=== PATIENT | female | born 1940 | race African-American/Black ===

== ENCOUNTER → 2016-06-21 | Outpatient (CLI) | payer BC ==
[~2016-06-21] MED LIST: ASPCH81X PO; ATOR-22 PO; GLC/500 PO; GLIM2TAB2 PO
[2016-06-21 09:45] LABS: BASO % 0.2 %; BASO ABS # 0.02 K/uL (0-0.2); COMPLETE YES; EOS % 2.5 %; HEMATOCRIT 40.9 % (37-47); IG% 0.2 %; LYMPH % 47.6 %; LYMPH ABS # 4.38 K/uL (1.2-3.4); MEAN CELL VOLUME 90.5 fL (80-100); MEAN CORPUSCULAR HGB CONC 34.2 g/dl (32-36); MONO % 8.6 %; NEUT % 40.9 %; PLATELET COUNT 239 K/uL (130-400); RED BLOOD COUNT 4.52 M/uL (4.2-5.4)
[2016-06-21 10:17] LABS: ALT/SGPT 17 U/L (12-78); AST/SGOT 13 U/L (15-37); BLOOD UREA NITROGEN 15 mg/dl (7-18); BUN/CREATININE RATIO 19.7 (10-20); CALCIUM 8.9 mg/dl (8.5-10.1); CARBON DIOXIDE 28 mmol/L (21-32); CHLORIDE 108 mmol/L (98-107); CHOLESTEROL 113 mg/dl (0-200); CREATININE 0.77 mg/dl (0.60-1.20); GLUCOSE 102 mg/dl (70-99); SODIUM 143 mmol/L (136-145); TRIGLYCERIDES 75 mg/dl (0-150); VERY LOW DENSITY LIPOPROT CALC 15 mg/dl
[2016-06-21 10:28] LABS: CHOLESTEROL/HDL RATIO 2.5; HDL CHOLESTEROL 45 mg/dl; LDL CHOLESTEROL CALCULATED 53 mg/dl
[2016-06-21 10:31] LABS: ESTIMATED AVERAGE GLUCOSE 137 mg/dl; HA1C FLAG Normal (Normal)
== END | disposition home or self-care (01) ==
LOC: C.LAB1850 07:01
PROVIDERS: ATTEND Physician Assistant
DX: E78.00 Pure hypercholesterolemia, unspecified (principal); E11.9 Type 2 diabetes mellitus without complications

== ENCOUNTER → 2016-10-10 | Outpatient (CLI) | payer BC ==
[2016-10-10 12:34] LABS: ESTIMATED AVERAGE GLUCOSE 131 mg/dl; HA1C FLAG Normal (Normal)
== END | disposition home or self-care (01) ==
LOC: C.LAB1850 10:46
PROVIDERS: ATTEND Physician Assistant
DX: E11.9 Type 2 diabetes mellitus without complications (principal)

== ENCOUNTER → 2017-01-23 | Outpatient (CLI) | payer BC ==
--- NOTE | 2017-01-23 15:03 | MAMMOGRAPHY REPORT ---
BILATERAL DIGITAL SCREENING MAMMOGRAM WITH CAD: 01/23/2017 CLINICAL HISTORY: Routine screening. Patient has no complaints. TECHNIQUE: Bilateral CC and MLO views were obtained. Current study was also evaluated with a Compute r Aided Detection (CAD) system. COMPARISON: Comparison is made to exams dated: 01/21/2016 mammogram, 01/19/2015 mammogram, 01/16/2014 mammogram - [facility], and 10/23/2007. BREAST COMPOSITION: The tissue of both breasts is almost entirely fatty. FINDINGS: There are mild vascular calcifications in both breasts. Stable intramammary lymph node in the right upper outer quadrant. No new suspicious mass, architectural distortion or cluster of micro calcifications is seen. IMPRESSION: ACR BI-RADS CATEGORY 2: BENIGN There is no mammographic evidence of malignancy. A 1 year screening mammogram is recommended. The pa tient will receive written notification of the results. Approximately 10% of breast cancers are not detected with mammography. A negative mammographic report should not delay biopsy if a clinically suggestive mass is present. Kimi Chaudhari M.D. ay/:01/23/2017 13:59:[address]: Dotty Ambrosio RT(R)(M)(BD), [facility] letter sent: Normal 1/2 BI-RADS Code: ACR BI-RADS Category 2: Benign
== END | disposition home or self-care (01) ==
LOC: C.MAMM 08:44
PROVIDERS: ATTEND Physician Assistant
DX: Z12.31 Encounter for screening mammogram for malignant neoplasm of breast (principal)

== ENCOUNTER → 2017-02-10 | Outpatient (CLI) | payer BC ==
[2017-02-10 09:32] LABS: BASO % 0.1 %; BASO ABS # 0.01 K/uL (0-0.2); COMPLETE YES; HEMATOCRIT 42.7 % (37-47); IG% 0.2 %; LYMPH ABS # 4.47 K/uL (1.2-3.4); MEAN CELL VOLUME 94.7 fL (80-100); MEAN CORPUSCULAR HEMOGLOBIN 31.9 pg (25-34); MEAN CORPUSCULAR HGB CONC 33.7 g/dl (32-36); MEAN PLATELET VOLUME 10.1 fL (7.4-10.4); MONO % 6.8 %; NEUT % 36.9 %; PLATELET COUNT 246 K/uL (130-400); RED BLOOD COUNT 4.51 M/uL (4.2-5.4); WHITE BLOOD COUNT 10.17 K/uL (4.8-10.8)
[2017-02-10 09:53] LABS: ALT/SGPT 20 U/L (12-78); AST/SGOT 19 U/L (15-37); BLOOD UREA NITROGEN 12 mg/dl (7-18); BUN/CREATININE RATIO 14.4 (10-20); CALCIUM 8.8 mg/dl (8.5-10.1); CARBON DIOXIDE 28 mmol/L (21-32); CHLORIDE 105 mmol/L (98-107); CREATININE 0.83 mg/dl (0.60-1.20); GLUCOSE 88 mg/dl (70-99); POTASSIUM 3.8 mmol/L (3.5-5.1); SODIUM 139 mmol/L (136-145)
[2017-02-10 09:55] LABS: ESTIMATED AVERAGE GLUCOSE 131 mg/dl; HA1C FLAG Normal (Normal)
[2017-02-10 10:05] LABS: CHOLESTEROL 100 mg/dl (0-200); CHOLESTEROL/HDL RATIO 2.4; HDL CHOLESTEROL 42 mg/dl; LDL CHOLESTEROL CALCULATED 39 mg/dl; TRIGLYCERIDES 96 mg/dl (0-150); VERY LOW DENSITY LIPOPROT CALC 19 mg/dl
--- NOTE | 2017-02-17 07:05 | CODING QUERY NO DIAGNOSIS ---
: 1940 TREATMENT RENDERED WITHOUT A DIAGNOSIS To promote full compliance with coding requirements relating to patient care, physician participation is requested in all cases of surgical coder uncertainty. Please assist us with providing a diagnosis/symptom for the test(s) below: A diagnosis/symptom was not documented on your Order. A valid diagnosis/symptom is required to bill all insurances. Please remember that we are unable to code a diagnosis of rule out, probable, possible, questionable, or suspected. Tests that require a diagnosis: DOS: 02/10/17 * ALT/SGPT DIAGNOSIS: * AST/SGOT DIAGNOSIS: * CREATINE PHOSPHOKINASE DIAGNOSIS: * LIPID PROFILE FASTING DIAGNOSIS: * PARTIAL RENAL PROFILE DIAGNOSIS: * THYROID STIMULATING HORMONE DIAGNOSIS: * CBC WITH AUTO DIFFERENTIAL DIAGNOSIS: * HEMOGLOBIN A1C DIAGNOSIS: Provider Signature: Date: Thank you Carey Prescott [email or web address] Information Management Once completed, please kindly fax back to [phone] For questions please call [phone]
== END | disposition home or self-care (01) ==
LOC: C.LAB1850 07:16
PROVIDERS: ATTEND Physician Assistant
DX: E78.00 Pure hypercholesterolemia, unspecified (principal); E11.9 Type 2 diabetes mellitus without complications

== ENCOUNTER → 2017-06-12 | Outpatient (CLI) | payer BC ==
[2017-06-12 14:56] LABS: HEMOGLOBIN A1C 6.7 % (4.5-5.6)
== END | disposition home or self-care (01) ==
LOC: C.LAB1850 13:15
PROVIDERS: ATTEND Physician Assistant
DX: E11.9 Type 2 diabetes mellitus without complications (principal)

== ENCOUNTER → 2017-10-12 | Outpatient (CLI) | payer BC ==
[2017-10-12 09:27] LABS: BASO % 0.2 %; BASO ABS # 0.02 K/uL (0-0.2); EOS % 7.3 %; EOS ABS # 0.62 K/uL (0-0.5); HEMOGLOBIN 13.9 g/dL (12.0-16.0); IG# 0.02 K/uL (0.00-0.02); LYMPH % 42.9 %; LYMPH ABS # 3.63 K/uL (1.2-3.4); MEAN CELL VOLUME 93.3 fL (80-100); MEAN CORPUSCULAR HEMOGLOBIN 30.2 pg (25-34); MEAN CORPUSCULAR HGB CONC 32.3 g/dl (32-36); MEAN PLATELET VOLUME 10.7 fL (7.4-10.4); MONO ABS # 0.68 K/uL (0.11-0.59); NEUT % 41.4 %; NEUT ABS # 3.49 K/uL (1.4-6.5); PLATELET COUNT 213 K/uL (130-400); RED CELL DISTRIBUTION WIDTH SD 47.5 fL (36.4-46.3); WHITE BLOOD COUNT 8.46 K/uL (4.8-10.8)
[2017-10-12 09:37] LABS: HEMOGLOBIN A1C 6.6 % (4.5-5.6)
[2017-10-12 09:46] LABS: ALT/SGPT 19 U/L (12-78); AST/SGOT 20 U/L (15-37); BLOOD UREA NITROGEN 15 mg/dl (7-18); CALCIUM 8.9 mg/dl (8.5-10.1); CARBON DIOXIDE 30 mmol/L (21-32); CHOLESTEROL 93 mg/dl (0-200); CREATININE 0.81 mg/dl (0.60-1.20); GLUCOSE 108 mg/dl (70-99); LDL CHOLESTEROL CALCULATED 35 mg/dl; POTASSIUM 3.9 mmol/L (3.5-5.1); SODIUM 140 mmol/L (136-145)
== END | disposition home or self-care (01) ==
LOC: C.LAB1850 07:03
PROVIDERS: ATTEND Physician Assistant
DX: E78.00 Pure hypercholesterolemia, unspecified (principal); E11.9 Type 2 diabetes mellitus without complications

== ENCOUNTER 2018-10-08 09:26 | Observation (INO) ==
[2018-10-08] MEDS ORDERED: SODIUM CHLORIDE 0.9% 500 ML IV SCH (10:00)
[2018-10-08 10:02] LABS: Basophils # (auto) 0.01 K/uL (0-0.2); Basophils % (auto) 0.1 %; Eosinophils # (auto) 0.14 K/uL (0-0.5); Eosinophils % (auto) 1.6 %; Hematocrit (blood only) 41.1 % (37-47); Hemoglobin 14.1 g/dL (12.0-16.0); Immature Granulocytes # (auto) 0.01 K/uL (0.00-0.02); Immature Granulocytes % (auto) 0.1 %; Lymphocytes % (auto) 48.1 %; Mean Corpuscular Hgb Conc 34.3 g/dL (32-36); Mean Corpuscular Volume 94.7 fL (80-100); Mean Platelet Volume 9.6 fL (7.4-10.4); Monocytes # (auto) 0.72 K/uL (0.11-0.59); Monocytes % (auto) 8.4 %; Neutrophils # (auto) 3.55 K/uL (1.4-6.5); Neutrophils % (auto) 41.7 %; Platelet Count 199 K/uL (130-400); RDW Coefficient of Variation 13.2 % (11.5-14.5); RDW Standard Deviation 46.3 fL (36.4-46.3); Red Blood Count 4.34 M/uL (4.2-5.4); White Blood Count 8.53 K/uL (4.8-10.8)
[2018-10-08 10:13] LABS: Alanine Aminotransferase 15 U/L (12-78); Albumin Level 3.9 gm/dl (3.4-5.0); Aspartate Aminotransferase 12 U/L (15-37); BUN Creatinine Ratio 16.5 (10-20); Blood Urea Nitrogen 12 mg/dl (7-18); Calcium 9.2 mg/dl (8.5-10.1); Carbon Dioxide 28 mmol/L (21-32); Chloride 109 mmol/L (98-107); Est GFR (African American) 93.4; Est GFR (Non-African American) 80.6; Glucose 91 mg/dl (70-99); Potassium 3.7 mmol/L (3.5-5.1); Sodium 142 mmol/L (136-145)
--- NOTE | 2018-10-08 10:13 | CT Scan Report ---
CT head/brain wo con CT DOSE: 537.48 mGy.cm HISTORY: Mental status change CONNER TECHNIQUE: Multiaxial CT images of the head were performed without the use of intravenous contrast. A dose lowering technique was utilized adhering to the principles of ALARA. Comparison: None. Findings: The paranasal sinuses and mastoid air cells are clear. The calvarium and skull base are int act. The ventricles and sulci are within normal limits. There is no mass, hematoma, midline shift, or acute infarct. Impression: No acute intracranial abnormality. The above report was generated using voice recognition software. It may contain grammatical, syntax or spelling errors. Electronically signed by: James Bernal M.D. 10/08/2018 10:12 AM
[2018-10-08 10:18] LABS: Albumin Globulin Ratio 1.1 (0.9-2); Alkaline Phosphatase 82 U/L (45-117); Bilirubin,Total 1.3 mg/dl (0.2-1); Globulin 3.5 gm/dl (2.5-4.0); Total Protein 7.4 gm/dl (6.4-8.2); Troponin I < 0.015 ng/ml (0-0.045)
--- NOTE | 2018-10-08 10:38 | XRay Report ---
XR chest 1V portable CLINICAL HISTORY: CONNER dyspnea COMPARISON STUDY: No previous studies for comparison. FINDINGS: The bones soft tissues and hemidiaphragms are normal. The cardiomediastinal silhouette is n ormal. The lungs are clear. The pulmonary vasculature is normal. IMPRESSION: Negative chest. The above report was generated using voice recognition software. It may contain grammatical, syntax or spelling errors. Electronically signed by: James Bernal M.D. 10/08/2018 10:37 AM
--- NOTE | 2018-10-08 11:38 | History & Physical Report ---
Date of Service October 08, 2018 Assessment & Plan (1) Paresthesias: Observation with telemetry. Consult neurology. Obtain brain MRI/MRA. Obtain cardiac echo. Lyme screen and ESR levels pending. Request OT/PT/speech evaluation. Continue aspirin and statin therapy Present on Admission?: Yes (2) Type 2 diabetes mellitus: ADA diet. Sliding scale insulin coverage. Metformin is on hold Present on Admission?: Yes (3) Hyperlipidemia: Continue statin therapy Present on Admission?: Yes (4) DVT prophylaxis: Lovenox subcu History of Present Illness Chief Complaint: Right scalp and right arm paresthesia Primary Care Provider: Valentin Hendrix MD 72-year-old female of [place] descent with a history of hyperlipidemia and type 2 diabetes. She awoke this morning with a burning sensation along the right scalp area right neck and right upper extremity. She had no apparent facial droop or difficulty with dexterity or weakness. This was confirmed by her . Her symptoms persisted and she came to the ED because she was afraid. Chest x-ray is negative. Head CT scan negative. EKG reveals sinus bradycardia with heart rate 54. At the time of my examination she states the right arm/hand paresthesia has resolved and she still has mild residual burning paresthesia in the right scalp area. No focal motor deficits. She is placed in observation status for further evaluation and neurological consultation. Allergies Allergy/AdvReac Type Severity Reaction Status Date / Time No Known Drug Allergies Allergy Unknown . Verified 10/08/18 10:34 Home Medications Home Medications Medication Instructions Recorded Confirmed Type aspirin 81 mg PO QAM 10/08/18 10/08/18 History atorvastatin 20 mg PO DAILY 10/08/18 10/08/18 History gabapentin 100 mg PO HS 10/08/18 10/08/18 History glimepiride 2 mg PO DAILY 10/08/18 10/08/18 History metformin 500 mg PO BID 10/08/18 10/08/18 History Past Med/Surg History Medical History No pertinent past medical history No pertinent family history Surgical History No pertinent past surgical history Family History Other No pertinent family history Social History Communication Ability: Effective Visual Impairment: No Limitations Hearing Ability: Normal Feels Safe at Home: Yes Smoking Status: Never smoker Review of Systems Review of Systems: Constitutional-no fever or chills ENT-no blurred vision, no double vision, no epistaxis, no sore throat Respiratory-no cough, no wheezing, no shortness of breath Cardiac-no palpitations, no chest pain, no syncope GI-no nausea, vomiting, diarrhea, melena, hematochezia -no urinary retention, no urinary incontinence, no dysuria, no hematuria Musculoskeletal-no joint pain, no muscle tenderness Skin-no bruising, no rashes, no pruritus Neuro-burning paresthesia right scalp area and right upper extremity. No localized weakness Psych-no depression, no anxiety Physical Exam Physical Exam: General-alert and oriented x3, no fevers, no chills HEENT-head atraumatic and normocephalic, TMs intact bilaterally, pupils equal and reactive to light, extraocular muscles intact Neck-no lymphadenopathy or thyromegaly, trachea midline Chest-clear to auscultation percussion. No rales wheezing or rhonchi Cardiac-regular rate and rhythm, normal S1 and S2, no murmurs Abdomen-normal bowel sounds, nontender, no hepatosplenomegaly Extremities-no cyanosis, clubbing, or edema Neuro-cranial nerves II through XII intact, motor and sensory function within normal limits, strength symmetrical , no focal deficits. Normal bilateral avxozj-su-vzjw and vfob-dh-[id number] Psych-normal affect, normal mood Results & Data Vital Signs (Past 12 Hours) Vital Signs Temp Pulse Pulse Resp BP BP Pulse Ox 10/08/18 10:58 55 L 16 159/54 H 98 10/08/18 09:52 99 10/08/18 09:27 36.9 C 66 20 184/73 H 100 Laboratory Results 10/08/18 09:49 10/08/18 09:49 PG Care Time/CCT Total # of Minutes Spent Total Time Spent with Patient: Total time spent is greater than 50% in coordination of care (as documented) at patient's floor/unit and/or counseling patient:
[2018-10-08 12:19] LABS: Lyme Ab IgG w/WB Rflx Negative (Negative); Lyme Ab IgM w/WB Rflx Negative (Negative)
[2018-10-08] MEDS ORDERED: ONDANSETRON INJ 2 MG/ML 2 ML VIAL IV PRN (16:06)
[2018-10-08] MEDS ORDERED: PHARMACIST DISCHARGE MED REC CONSULT PRN (16:06)
[2018-10-08] MEDS ORDERED: ACETAMINOPHEN 325 MG TAB PO PRN (16:06)
[2018-10-08] MEDS ORDERED: ALUMINUM/MAGNESIUM SUSP 30 ML UDC PO PRN (16:06)
[2018-10-08] MEDS ORDERED: GLUCAGON FOR INJ 1 MG VIAL IM PRN (16:15)
[2018-10-08] MEDS ORDERED: DEXTROSE 50% 50 ML SYRINGE IV PRN (16:15)
[2018-10-08] MEDS ORDERED: GLUCOSE 10 TABS/TUBE PO PRN (16:15)
[2018-10-08] MEDS ORDERED: CARBOHYDRATES FOR HYPOGLYCEMIA PO PRN (16:15)
[2018-10-08] MEDS ORDERED: GLUCOSE 40% GEL 15 GM TUBE PO PRN (16:15)
[2018-10-08 16:41] LABS: Partial Thromboplastin Time 26.5 Seconds (21.0-31.0); Prothrombin Time 10.3 Seconds (9.0-12.0)
--- NOTE | 2018-10-08 16:41 | Emergency Department Note ---
Entered by Perlita Madden acting as a scribe for History of Present Illness General Chief complaint: Neuro Symptoms/Deficit Stated complaint: BURNING FEELINGS RT HAND AND RT SIDE HEAD,EAR Source: patient Mode of arrival: ambulatory Limitations: no limitations History of Present Illness Onset (ago): hour(s) (0100) Location: right (face, hand) Radiation: non-radiation Pain Consistency: + constant Maximum Pain Intensity: 8 Quality: + burning Exacerbated By: + none Associated symptoms: + other (The patient complains of pain in her right arm and right face.The patient denies numbness, abdominal pain, and diarrhea. ); no chest pain, no cough, no nausea/vomiting, no shortness of breath and no weakness The patient is a 77 year old female with no known past medical history who presents to the ED with complaints of constant neurological symptoms that onset at 0100. The patient presents with her . She states that she woke up with a burning pain like fire in her right hand. She reports that the pain is also on the right side of her face and ear but does not go into her neck, back of head, or shoulders. The patient denies weakness, numbness, chest pain, shortness of breath, abdominal pain, nausea, vomiting, diarrhea, and cough. She denies any exacerbatory factors. Patient has no other complaints at this time. Home Medications Home Medications Medication Instructions Recorded Confirmed Type aspirin 81 mg PO QAM 10/08/18 10/08/18 History atorvastatin 20 mg PO DAILY 10/08/18 10/08/18 History gabapentin 100 mg PO HS 10/08/18 10/08/18 History glimepiride 2 mg PO DAILY 10/08/18 10/08/18 History metformin 500 mg PO BID 10/08/18 10/08/18 History Allergies Allergy/AdvReac Type Severity Reaction Status Date / Time No Known Drug Allergies Allergy Unknown . Verified 10/08/18 10:34 Past Med/Surg History Medical History Hyperlipidemia (Chronic) Type 2 diabetes mellitus (Chronic) No pertinent past medical history No pertinent family history Surgical History No pertinent past surgical history Family History Other No pertinent family history Social History Communication Ability: Effective Visual Impairment: No Limitations Hearing Ability: Normal Feels Safe at Home: Yes Smoking Status: Never smoker Review of Systems See HPI for pertinent positives & negatives. and A total of 10 systems reviewed and were otherwise negative Physical Exam Vital Signs Vital Signs - 24 hr 10/08/18 09:27 10/08/18 09:44 10/08/18 09:49 Temperature 36.9 C Temperature Source Oral Sepsis Recent Fever Within 48 Hours No Sepsis Action Taken by Nursing No Action Required Pulse Rate - Lying Pulse Rate - Sitting Pulse Rate - Standing Pulse Rate 66 67 58 L Pulse Rate [Left Finger] Pulse Rate from SpO2 Sensor 70 59 L Respiratory Rate 20 17 13 Blood Pressure - Lying Blood Pressure - Sitting Blood Pressure- Standing Blood Pressure 184/73 H 168/66 H Blood Pressure [Left Arm] Blood Pressure Mean 110 100 Blood Pressure Mean [Left Arm] Pulse Oximetry 100 99 99 Oxygen Delivery Method Room Air Room Air Room Air 10/08/18 09:50 10/08/18 09:52 10/08/18 09:59 Temperature Temperature Source Sepsis Recent Fever Within 48 Hours Sepsis Action Taken by Nursing Pulse Rate - Lying 61 Pulse Rate - Sitting 63 Pulse Rate - Standing 61 Pulse Rate 64 Pulse Rate [Left Finger] Pulse Rate from SpO2 Sensor 66 60 Respiratory Rate 19 Blood Pressure - Lying 142/61 H Blood Pressure - Sitting 164/71 H Blood Pressure- Standing 168/65 H Blood Pressure 142/61 H Blood Pressure [Left Arm] Blood Pressure Mean 88 Blood Pressure Mean [Left Arm] Pulse Oximetry 99 99 98 Oxygen Delivery Method Room Air Room Air Room Air 10/08/18 10:00 10/08/18 10:01 10/08/18 10:11 Temperature Temperature Source Sepsis Recent Fever Within 48 Hours Sepsis Action Taken by Nursing Pulse Rate - Lying Pulse Rate - Sitting Pulse Rate - Standing Pulse Rate 57 L Pulse Rate [Left Finger] Pulse Rate from SpO2 Sensor 64 56 L Respiratory Rate 19 Blood Pressure - Lying Blood Pressure - Sitting Blood Pressure- Standing Blood Pressure 168/65 H 174/71 H Blood Pressure [Left Arm] Blood Pressure Mean 99 105 Blood Pressure Mean [Left Arm] Pulse Oximetry 100 98 Oxygen Delivery Method Room Air Room Air Room Air 10/08/18 10:20 10/08/18 10:30 10/08/18 10:31 Temperature Temperature Source Sepsis Recent Fever Within 48 Hours Sepsis Action Taken by Nursing Pulse Rate - Lying Pulse Rate - Sitting Pulse Rate - Standing Pulse Rate 55 L 65 55 L Pulse Rate [Left Finger] Pulse Rate from SpO2 Sensor 55 L 66 55 L Respiratory Rate 17 20 21 Blood Pressure - Lying Blood Pressure - Sitting Blood Pressure- Standing Blood Pressure 159/54 H Blood Pressure [Left Arm] Blood Pressure Mean 89 Blood Pressure Mean [Left Arm] Pulse Oximetry 98 97 99 Oxygen Delivery Method Room Air Room Air Room Air 10/08/18 10:38 10/08/18 10:40 10/08/18 10:50 Temperature Temperature Source Sepsis Recent Fever Within 48 Hours Sepsis Action Taken by Nursing Pulse Rate - Lying Pulse Rate - Sitting Pulse Rate - Standing Pulse Rate 52 L 53 L 52 L Pulse Rate [Left Finger] Pulse Rate from SpO2 Sensor 52 L 55 L 54 L Respiratory Rate 18 13 22 Blood Pressure - Lying Blood Pressure - Sitting Blood Pressure- Standing Blood Pressure 159/54 H Blood Pressure [Left Arm] Blood Pressure Mean 89 Blood Pressure Mean [Left Arm] Pulse Oximetry 98 99 98 Oxygen Delivery Method Room Air Room Air Room Air 10/08/18 10:58 10/08/18 11:00 10/08/18 11:10 Temperature Temperature Source Sepsis Recent Fever Within 48 Hours Sepsis Action Taken by Nursing Pulse Rate - Lying Pulse Rate - Sitting Pulse Rate - Standing Pulse Rate 52 L 54 L Pulse Rate [Left Finger] 55 L Pulse Rate from SpO2 Sensor 51 L 55 L Respiratory Rate 16 16 21 Blood Pressure - Lying Blood Pressure - Sitting Blood Pressure- Standing Blood Pressure 150/64 H Blood Pressure [Left Arm] 159/54 H Blood Pressure Mean 92 Blood Pressure Mean [Left Arm] 89 Pulse Oximetry 98 98 99 Oxygen Delivery Method Room Air Room Air Room Air 10/08/18 11:20 10/08/18 11:30 10/08/18 11:34 Temperature Temperature Source Sepsis Recent Fever Within 48 Hours Sepsis Action Taken by Nursing Pulse Rate - Lying Pulse Rate - Sitting Pulse Rate - Standing Pulse Rate 55 L 57 L Pulse Rate [Left Finger] 56 L Pulse Rate from SpO2 Sensor 54 L 57 L Respiratory Rate 23 17 18 Blood Pressure - Lying Blood Pressure - Sitting Blood Pressure- Standing Blood Pressure 146/64 H Blood Pressure [Left Arm] 146/64 H Blood Pressure Mean 91 Blood Pressure Mean [Left Arm] 91 Pulse Oximetry 98 98 98 Oxygen Delivery Method Room Air Room Air Room Air GENERAL: Sitting up in bed, no acute distress, talking in full sentences with [place] accent. EYE EXAM: Normal conjunctiva. OROPHARYNX: no exudate, no erythema, lips, buccal mucosa, and tongue normal and mucous membranes are moist NECK: supple, no nuchal rigidity, no adenopathy, non-tender LUNGS: Clear to auscultation. Normal chest wall mechanics HEART: no murmurs, S1 normal and S2 normal ABDOMEN: abdomen soft, non-tender, normo-active bowel sounds, no masses, no rebound or guarding. BACK: Back is symmetrical on inspection and there is no deformity, no midline tenderness, no CVA tenderness. SKIN: no rashes and no bruising UPPER EXTREMITIES: upper extremities are grossly normal. LOWER EXTREMITIES: No pitting edema. NEURO EXAM: Normal sensorium, cranial nerves II-XII intact, normal speech, no weakness of arms, no weakness of legs. No drift. Finger to nose intact. Gross sensation intact. Course 0947: Past medical records reviewed. The patient was evaluated in room A9. A complete history and physical examination was performed. 1059: Call out to neurology. 1100: I reviewed the patient's case with Dr. Jace Elizalde Neurology. He states the bring the patient in for a stroke work up. 1101: I updated the patient on the results of her scans and the plan to bring her in. 1108: I reviewed the patient's case with Dr. Armida Frank - [facility]. He will evaluate the patient for further management. Consultations Consultation #1: 1100: I reviewed the patient's case with Dr. Jace Elizalde Neurology. He states the bring the patient in for a stroke work up. Time: 11:00 Consultation #2: 1108: I reviewed the patient's case with Dr. Armida Frank - [facility]. He will evaluate the patient for further management. Time: 11:08 Administered Medications Discontinued Medications Sodium Chloride (Nss) 500 mls @ 999 mls/hr IV .Q31M KEVIN Stop: 10/08/18 10:30 Last Infusion: 10/08/18 11:31 Dose: 0 mls/hr Documented by: [id number] Admin: 10/08/18 10:02 Dose: 999 mls/hr Documented by: [id number] Medical Decision Making Differential Diagnosis Differential diagnoses: Ischemic Stroke, hemorrhagic stroke, bells palsy, mass, neoplasm, migraine headache, seizure, subarachnoid hemorrhage, TIA, and transient global amnesia. Medical Records Attestation: I reviewed the patient's medical records. Home Medications Current Medication List: was personally reviewed by me Laboratory Data Attestation: I reviewed the patient's lab results. Result diagrams: 10/08/18 09:49 10/08/18 09:49 Lab Results 10/08/18 10/08/18 10/08/18 Range/Units 09:46 09:49 09:49 WBC 8.53 (4.8-10.8) K/uL RBC 4.34 (4.2-5.4) M/uL Hgb 14.1 (12.0-16.0) g/dL Hct 41.1 (37-47) % MCV 94.7 (80-100) fL MCH 32.5 (25-34) pg MCHC 34.3 (32-36) g/dL RDW Std Deviation 46.3 (36.4-46.3) fL RDW Coeff of Suzanne 13.2 (11.5-14.5) % Plt Count 199 (130-400) K/uL MPV 9.6 (7.4-10.4) fL Immature Gran % (Auto) 0.1 % Neut % (Auto) 41.7 % Lymph % (Auto) 48.1 % Mcleod % (Auto) 8.4 % Eos % (Auto) 1.6 % Baso % (Auto) 0.1 % Immature Gran # (Auto) 0.01 (0.00-0.02) K/uL Neut # (Auto) 3.55 (1.4-6.5) K/uL Lymph # (Auto) 4.10 H (1.2-3.4) K/uL Mcleod # (Auto) 0.72 H (0.11-0.59) K/uL Eos # (Auto) 0.14 (0-0.5) K/uL Baso # (Auto) 0.01 (0-0.2) K/uL ESR (0-21) mm/hr Sodium 142 (136-145) mmol/L Potassium 3.7 (3.5-5.1) mmol/L Chloride 109 H (98-107) mmol/L Carbon Dioxide 28 (21-32) mmol/L Anion Gap 5.0 (3-11) BUN 12 (7-18) mg/dl Creatinine 0.73 (0.6-1.2) mg/dl Est Cr Clr Drug Dosing Not Reportable Est GFR ( Amer) 93.4 Est GFR (Non-Af Amer) 80.6 BUN/Creatinine Ratio 16.5 (10-20) Glucose 91 (70-99) mg/dl Calcium 9.2 (8.5-10.1) mg/dl Total Bilirubin 1.3 H (0.2-1) mg/dl AST 12 L (15-37) U/L ALT 15 (12-78) U/L Alkaline Phosphatase 82 (45-117) U/L Troponin I < 0.015 (0-0.045) ng/ml Total Protein 7.4 (6.4-8.2) gm/dl Albumin 3.9 (3.4-5.0) gm/dl Globulin 3.5 (2.5-4.0) gm/dl Albumin/Globulin Ratio 1.1 (0.9-2) Lyme Disease IgG Ab Negative (Negative) Lyme Disease IgM Ab Negative (Negative) 10/08/18 Range/Units 09:49 WBC (4.8-10.8) K/uL RBC (4.2-5.4) M/uL Hgb (12.0-16.0) g/dL Hct (37-47) % MCV (80-100) fL MCH (25-34) pg MCHC (32-36) g/dL RDW Std Deviation (36.4-46.3) fL RDW Coeff of Suzanne (11.5-14.5) % Plt Count (130-400) K/uL MPV (7.4-10.4) fL Immature Gran % (Auto) % Neut % (Auto) % Lymph % (Auto) % Mcleod % (Auto) % Eos % (Auto) % Baso % (Auto) % Immature Gran # (Auto) (0.00-0.02) K/uL Neut # (Auto) (1.4-6.5) K/uL Lymph # (Auto) (1.2-3.4) K/uL Mcleod # (Auto) (0.11-0.59) K/uL Eos # (Auto) (0-0.5) K/uL Baso # (Auto) (0-0.2) K/uL ESR 31 H (0-21) mm/hr Sodium (136-145) mmol/L Potassium (3.5-5.1) mmol/L Chloride (98-107) mmol/L Carbon Dioxide (21-32) mmol/L Anion Gap (3-11) BUN (7-18) mg/dl Creatinine (0.6-1.2) mg/dl Est Cr Clr Drug Dosing Est GFR ( Amer) Est GFR (Non-Af Amer) BUN/Creatinine Ratio (10-20) Glucose (70-99) mg/dl Calcium (8.5-10.1) mg/dl Total Bilirubin (0.2-1) mg/dl AST (15-37) U/L ALT (12-78) U/L Alkaline Phosphatase (45-117) U/L Troponin I (0-0.045) ng/ml Total Protein (6.4-8.2) gm/dl Albumin (3.4-5.0) gm/dl Globulin (2.5-4.0) gm/dl Albumin/Globulin Ratio (0.9-2) Lyme Disease IgG Ab (Negative) Lyme Disease IgM Ab (Negative) Imaging Data Radiologist's Impression: Radiology results as stated below per my review and the radiologist's interpretation: XR chest 1V portable CLINICAL HISTORY: CONNER dyspnea COMPARISON STUDY: No previous studies for comparison. FINDINGS: The bones soft tissues and hemidiaphragms are normal. The cardiomediastinal silhouette is normal. The lungs are clear. The pulmonary vasculature is normal. IMPRESSION: Negative chest. The above report was generated using voice recognition software. It may contain grammatical, syntax or spelling errors. Electronically signed by: James Bernal M.D. 10/08/2018 10:37 AM Dictated: 10/08/18 1037 Transcribed: 10/08/[address] head/brain wo con CT DOSE: 537.48 mGy.cm HISTORY: Mental status change CONNER TECHNIQUE: Multiaxial CT images of the head were performed without the use of intravenous contrast. A dose lowering technique was utilized adhering to the principles of ALARA. Comparison: None. Findings: The paranasal sinuses and mastoid air cells are clear. The calvarium and skull base are intact. The ventricles and sulci are within normal limits. There is no mass, hematoma, midline shift, or acute infarct. Impression: No acute intracranial abnormality. The above report was generated using voice recognition software. It may contain grammatical, syntax or spelling errors. Electronically signed by: James Bernal M.D. 10/08/2018 10:12 AM Dictated: 10/08/18 1011 Transcribed: 10/08/[address] DOSE: 537.48 mGy.cm HISTORY: Mental status change CONNER TECHNIQUE: Multiaxial CT images of the head were performed without the use of intravenous contrast. A dose lowering technique was utilized adhering to the principles of ALARA. Comparison: None. Findings: The paranasal sinuses and mastoid air cells are clear. The calvarium and skull base are intact. The ventricles and sulci are within normal limits. There is no mass, hematoma, midline shift, or acute infarct. Impression: No acute intracranial abnormality. The above report was generated using voice recognition software. It may contain grammatical, syntax or spelling errors. Electronically signed by: James Bernal M.D. 10/08/2018 10:12 AM Dictated: 10/08/181 Transcribed: 10/08/181010 ECG Data Attestation: I personally reviewed and interpreted this ECG as follows: Indication: other (neuro symptoms) Rate (beats per minute): 54 Rhythm: sinus bradycardia Findings: + left axis deviation; no PVC Blood Pressure Blood Pressure Findings: Elevated blood pressure Blood Pressure Disposition: further management by hospitalist ZACH Narrative Patient is a 77-year-old female presents the ER for pain/burning in her right hand and right side of her face which starts along the hairline. No tenderness over her temporal artery. Patient denies any fevers. No weakness or numbness in her arms or legs. IV was established blood work was obtained and showed no significant leukocytosis or anemia. Sed rate was slightly elevated at 31 but not above 50. INR was unremarkable. BMP with LFTs was unremarkable. Bilirubin slightly elevated at 1.3. Troponin was negative. Lyme was negative. CT head was negative as well as chest x-ray without any focal infiltrate and EKG being unremarkable. Patient was given IV fluids. She is updated bedside. Discussed with neurology Dr. Bradshaw who recommended bringing the patient in for stroke work- up as this is most likely central in nature. Patient family were updated bedside and patient was admitted after discussion with the hospitalist. Impression & Plan Paresthesias, Elevated bilirubin Discharge Plan Visit Data *Final* Discharge Date/Time: 10/08/18 15:15 Chief Complaint: Neuro Symptoms/Deficit Stated Complaint: BURNING FEELINGS RT HAND AND RT SIDE HEAD,EAR ED Provider: Osmin Joyner Discharge Problem: Paresthesias, Elevated bilirubin Patient Disposition: Admitted As Inpatient Discharge Instructions Interventions: ED Discharge Assessment Last Done: 10/08/18 15:15 The scribe's documentation has been prepared under my direction and personally reviewed by me in its entirety. I confirm that the note above accurately reflects all work, treatment, procedures, and medical decision making performed by me.
[2018-10-08] MEDS: INSULIN ASPART 100 UNITS/ML 3 ML PEN SC SCH ×2 (17:25→21:44)
[2018-10-08] MEDS ORDERED: ENOXAPARIN INJ 40 MG/0.4 ML SYR SQ SCH (18:00)
--- NOTE | 2018-10-08 19:14 | Magnetic Resonance Report ---
MR ANGIOGRAPHY OF THE [place] NO CONTRAST CLINICAL HISTORY: Right sided paresthesia COMPARISON STUDY: None. A 3-D trvq-[id number]-rpaaat MR angiographic sequence of the [place] was performed. Both the source and projection images were reviewed. There is no evidence of major intracranial branch occlusion. There is no evidence of intracranial mike nosis. There are no lesions suspicious for aneurysm. IMPRESSION: Unremarkable MR angiography of the [place]. Electronically signed by: Yevgeniy Linares M.D. 10/08/2018 7:13 PM
[2018-10-08] MEDS ORDERED: GADOBUTROL 65ML VIAL IV PRN (19:41)
--- NOTE | 2018-10-08 19:44 | Magnetic Resonance Report ---
NECK MRA HISTORY: Vertigo. Right sided paresthesia TECHNIQUE: [id number] and gadolinium-enhanced MRA of the neck was performed both before and after the intravenous administration of contrast. All measurements were calculated based on NASCET criteri a. Imaging was performed before and after the administration of 8 cc of intravenous Gadavist. COMPARISON STUDY: None. FINDINGS: The aortic arch and proximal great vessels are widely patent. There is no significant sten osis, occlusion, or dissection identified within the bilateral common carotid, internal carotid, or v ertebral arteries. IMPRESSION: No significant stenosis, occlusion, or dissection identified within the carotid or vertebral arteries . Electronically signed by: Yevgeniy Linares M.D. 10/08/2018 7:42 PM
--- NOTE | 2018-10-08 19:47 | Magnetic Resonance Report ---
MRI OF THE BRAIN WITHOUT AND WITH IV CONTRAST CLINICAL HISTORY: Right sided paresthesia HEADACHE MENTAL STATUS CHANGE. COMPARISON STUDY: Head CT dated 10/08/2018 TECHNIQUE: MRI of the brain was performed from the vertex to the skull base utilizing various T1 and T2 weighted sequences. Following the IV administration of 8 mL of Gadavist contrast, additional enhan wisam images were obtained. FINDINGS: Sagittal T1, axial diffusion, proton density and T2 weighted axial, coronal FLAIR, and pre and post a xial T1-weighted images were acquired. These were supplemented with post gadolinium coronal T1 weight ed images. No intra or extra-axial mass lesions are visualized. Axial diffusion-weighted images reveal no evidence of acute or subacute infarction. There is no evidence of ventricular dilatation. Proton density T2-weighted and FLAIR images reveal scattered foci of increased T2 signal within the w roberto matter, likely on a small vessel basis. There are no abnormal flow voids. There is no evidence of pathologic enhancement.. There is hyperostosis frontalis, and ossification of the falx. IMPRESSION: 1. No acute intracranial findings 2. No evidence of acute or subacute infarction 3. No evidence of intracranial mass Electronically signed by: Yevgeniy Linares M.D. 10/08/2018 7:46 PM
[2018-10-08] MEDS ORDERED: GABAPENTIN 100 MG CAP PO SCH (21:00)
[2018-10-09 05:45] LABS: Basophils # (auto) 0.02 K/uL (0-0.2); Basophils % (auto) 0.3 %; Eosinophils # (auto) 0.16 K/uL (0-0.5); Eosinophils % (auto) 2.3 %; Hematocrit (blood only) 38.9 % (37-47); Hemoglobin 13.1 g/dL (12.0-16.0); Immature Granulocytes # (auto) 0.01 K/uL (0.00-0.02); Immature Granulocytes % (auto) 0.1 %; Lymphocytes % (auto) 49.2 %; Mean Corpuscular Hgb Conc 33.7 g/dL (32-36); Mean Corpuscular Volume 94.9 fL (80-100); Monocytes # (auto) 0.57 K/uL (0.11-0.59); Neutrophils # (auto) 2.85 K/uL (1.4-6.5); Neutrophils % (auto) 40.1 %; Platelet Count 186 K/uL (130-400); RDW Coefficient of Variation 13.3 % (11.5-14.5); RDW Standard Deviation 45.9 fL (36.4-46.3); White Blood Count 7.11 K/uL (4.8-10.8)
[2018-10-09 06:14] LABS: BUN Creatinine Ratio 17.3 (10-20); Blood Urea Nitrogen 12 mg/dl (7-18); Calcium 8.6 mg/dl (8.5-10.1); Carbon Dioxide 26 mmol/L (21-32); Chloride 111 mmol/L (98-107); Est GFR (African American) 96.6; Est GFR (Non-African American) 83.3; Glucose 93 mg/dl (70-99); Potassium 4.1 mmol/L (3.5-5.1); Sodium 144 mmol/L (136-145)
[2018-10-09 06:17] LABS: Chol HDL Ratio 3; Cholesterol 91 mg/dl (0-200); HDL Cholesterol 33 mg/dl; LDL Cholesterol Calculated 39 mg/dl; Triglycerides 93 mg/dl (0-150); VLDL Cholesterol 19 mg/dl
[2018-10-09 07:34] LABS: Estimated Average Glucose 137 mg/dl; Hemoglobin A1C 6.4 % (4.5-5.6)
[2018-10-09] MEDS ORDERED: Nursing to Pharmacy Communication ONE (07:47)
[2018-10-09] MEDS: INSULIN ASPART 100 UNITS/ML 3 ML PEN SC SCH ×2 (08:56→12:13)
[2018-10-09] MEDS ORDERED: GLIMEPIRIDE 2 MG TAB PO SCH ×2 (09:00→21:00)
[2018-10-09] MEDS ORDERED: ASPIRIN 81 MG ECTAB PO SCH (09:00)
[2018-10-09] MEDS ORDERED: ATORVASTATIN 20 MG TAB PO SCH ×2 (09:00→21:00)
--- NOTE | 2018-10-09 09:33 | Neurology Consultation ---
Date of Consultation October 09, 2018 Assessment & Plan (1) Paresthesias: Resolved paresthesia/burning pain affecting the right hand and right side of the face. Etiology not entirely clear. No evidence for acute or subacute infarct. Does not have a facial droop or wrist drop. May have had transient nerve compression due to sleeping position. Diabetes mellitus would be a potential risk factor for focal compression neuropathies which may oftentimes be transient. No evidence for vasculitis or Lyme disease on recent lab evaluation. At this point, given this patient's resolved symptomatology and unremarkable evaluation I do not have any further immediate recommendations. If her symptoms recur she should be reevaluated. History of Present Illness Reason for Consultation: Paresthesia Requesting Physician: Kevin Huffman MD Attending Physician: Myrna Brown MD History of Present Illness The patient is a 77-year-old female with a chief complaint of burning pain affecting the right hand and right side of the face which began acutely, awakening her from sleep, at around 1 AM on October 08. She denies experiencing any associated weakness, facial droop, vision change, or change in speech or swallowing. Her symptoms have been persistent and provoked some degree of anxiety which is why she presented to the emergency department for further evaluation. She does not recall ever having similar symptoms in the past. No rash or tick bite recently. She denies experiencing any associated neck pain. Currently, her symptoms are resolved. Additional details as below. Family history noncontributory Allergies Allergy/AdvReac Type Severity Reaction Status Date / Time No Known Drug Allergies Allergy Unknown . Verified 10/08/18 10:34 Home Medications Home Medications Medication Instructions Recorded Confirmed Type aspirin 81 mg PO QAM 10/08/18 10/08/18 History atorvastatin 20 mg PO DAILY 10/08/18 10/08/18 History gabapentin 100 mg PO HS 10/08/18 10/08/18 History glimepiride 2 mg PO DAILY 10/08/18 10/08/18 History metformin 500 mg PO BID 10/08/18 10/08/18 History Patient History Medical History Hyperlipidemia (Chronic) Type 2 diabetes mellitus (Chronic) No pertinent past medical history No pertinent family history Surgical History No pertinent past surgical history Family History Other No pertinent family history Social History Preferred Language: Irish Communication Ability: Effective Visual Impairment: No Limitations Hearing Ability: Normal 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 Beliefs That Will Affect Care: None Current Living Situation: Spouse Other Information That Helps Us Care for You: No Feels Safe at Home: Yes Smoking Status: Never smoker Do You Dip or Chew Tobacco: No Second Hand Exposure: No Hx Alcohol Use: No Hx Substance Use: No Review of Systems Constitutional: no fever and no chills Eyes: no blind spots and no diplopia Ear, Nose, Mouth, Throat: no ear pain and no tinnitus Respiratory: no cough and no dyspnea Cardiovascular: no chest pain and no palpitations Gastrointestinal: no nausea and no vomiting Genitourinary: no dysuria Musculoskeletal: no myalgia Integumentary: no rash and no lesions Neurologic: as per Subjective / HPI Psychiatric: no depression and no anxiety Hematologic / Lymphatic: no easy bleeding and no easy bruising Physical Exam Physical Exam: The patient is a well-developed, well-nourished elderly female. She is alert and fully oriented. Recent and remote memory intact. Attention and concentration normal. Patient exhibits a normal spontaneous speech pattern as well as an age-appropriate fund of knowledge and normal comprehension of vocabulary. Visual phipps full to confrontation. Visual acuity normal. Pupils equal round react to light and accommodation. Eye movements normal. Facial sensation intact. There is no facial droop or weakness. Hearing intact. Palate elevates to midline. Shoulder shrug intact. Tongue protrudes to midline. There is a mild length dependent sensory deficit to all modalities in all 4 limbs. Deep tendon reflexes are diffusely diminished. Plantar responses downgoing bilaterally. There is no dysdiadochokinesia or dysmetria fbhjhj-fv-qswp or huhf-eq-swpr bilaterally. Ophthalmoscopic examination reveals normal-appearing optic disks and posterior segments. No papilledema or hemorrhages. Carotid pulses normal bilaterally, no bruits to auscultation. Gait and station normal. Patient exhibits normal muscle strength and tone for all 4 limbs. No atrophy. No abnormal movements observed. Results & Data Vital Signs (Past 12 Hours) Vital Signs Temp Pulse Pulse Resp BP Pulse Ox 10/09/18 07:35 36.8 C 50 L 16 126/76 96 10/09/18 04:00 36.8 C 80 20 144/76 H 98 10/09/18 00:15 53 L 10/08/18 23:00 36.9 C 55 L 19 117/56 L 98 Laboratory Results Recently completed labs reviewed. WBC 7.52, hemoglobin 14.4, hematocrit 41.3, platelet count 206, ESR 31, sodium 144, potassium 4.1, BUN 12, creatinine 0.71, glucose 93, hemoglobin A1c 6.4, transaminases normal, lipid panel within normal limits. Diagnostic Findings A CT of the head completed yesterday was negative for hemorrhage or acute process. Images and report reviewed. Brain MRI completed yesterday was negative for acute or subacute infarct. There is evidence of mild scattered chronic small vessel ischemic change. Images and report reviewed. MRA of the head and neck are unremarkable, within normal limits.
--- NOTE | 2018-10-09 13:14 | Discharge Summary ---
Date of Service October 09, 2018 Admission HPI Per Admitting Provider 72-year-old female of [place] descent with a history of hyperlipidemia and type 2 diabetes. She awoke this morning with a burning sensation along the right scalp area right neck and right upper extremity. She had no apparent facial droop or difficulty with dexterity or weakness. This was confirmed by her . Her symptoms persisted and she came to the ED because she was afraid. Chest x-ray is negative. Head CT scan negative. EKG reveals sinus bradycardia with heart rate 54. At the time of my examination she states the right arm/hand paresthesia has resolved and she still has mild residual burning paresthesia in the right scalp area. No focal motor deficits. She is placed in observation status for further evaluation and neurological consultation. Principal Diagnosis Paresthesias Discharge Exam Constitutional WD/WN, vitals as above Eyes PERRL, conjunctivae normal, anicteric sclerae ENMT external ear and nose normal, oropharynx normal Neck trachea midline, no thyromegaly Respiratory normal respiratory effort, lungs clear to auscultation Cardiovascular RRR, no murmur, no edema Gastrointestinal (Abdomen) normal bowel sounds, soft, nontender, no hepatosplenomegaly Musculoskeletal Extremities: extremities normal to inspection; no cyanosis and no clubbing Skin no rashes, warm and dry Neurologic CN's II-XI intact bilaterally, moves all extremities and awake; no focal motor deficits Psychiatric A+Ox3, euthymic affect Discharge Data Allergies Allergy/AdvReac Type Severity Reaction Status Date / Time No Known Drug Allergies Allergy Unknown . Verified 10/15/18 11:27 Consultations Neurology Ordered Studies 10/08/18 09:53 CT head/brain wo con Stat 10/08/18 16:06 MR angio head wo con Routine MR angio neck wo/w con Routine MR brain wo/w con Routine CXR ECHO Hospital Course (1) Paresthesias: Presented with paresthesias on the right scalp and hand. Resolved spontaneously after many hours. No associated vison changes or headache. Seen by Neurology and all studies reviewed by Neuro--> not likely to be a TIA or CVA MRI brain neg for stroke or other intracranial lesions MRA head and neck negative Lyme screen negative, ESR normal for age at 34 CVA ruled out SB on tele ECHO normal May have slept on head/neck in awkward position which caused muscle spasm around brachial plexus? Unclear etiology but now resolved -no further workup necessary (2) Type 2 diabetes mellitus: ADA diet. Sliding scale insulin coverage. Metformin can be resumed upon discharge (3) Hyperlipidemia: Continue statin therapy LDL here excellent at 39, TChol only 91 (4) DVT prophylaxis: Lovenox subcu was p[rovided Stable for dc to home Total Time Total Time Spent Total Time Spent (In Minutes): >30 min Total Time Includes: Examination of the Patient, Discharge Planning and Medication Reconciliation Discharge Plan Discharge Items Patient Disposition: Home - Self-Care Reason For Visit: PARESTHESIA Discharge Diagnosis: Paresthesia Condition: Good Discharge Goals: Diagnostic testing and Learn about illness Activity: Resume your previous activity Bathing: No limitations Non-emergency contact: Primary Care Provider Call non-emergency contact if: you have any medication questions and your symptoms worsen Follow-up/Referrals: Jonh Hendrix MD [Primary Care Provider] - 10/15/18 11:30 am (Please, follow up at Dr. Hendrix's office with his human resources benefits assistant, Shivani Mancera PA-C, on MondayOctober 15 at 11:30 am. *If you need to change this appointment, call their office at [phone].) Diet: Carb Consistent or DM2 Addtl Provider Instructions: You were admitted with numbness and tingling of the scalp and hand. You had extensive testing which showed you did not have a stroke and there is no problem in your brain. You were seen by the neurologist who thought that this may have been a temporarily pinched nerve. This could also be related to stress. Please follow-up with your primary care provider within 1 week as scheduled for you. There are no changes to medications. Your echocardiogram (ultrasound of the heart) was pending at the time of discharge-you should be contacted with the results of this when available. Prescriptions: Continued atorvastatin 20 mg tablet 20 mg PO DAILY RF: 0 aspirin 81 mg Tablet,Delayed Release (Dr/Ec) 81 mg PO QAM RF: 0 glimepiride 2 mg tablet 2 mg PO DAILY RF: 0 gabapentin 100 mg Capsule 100 mg PO HS RF: 0 metformin 500 mg tablet extended release 24 hr 500 mg PO BID Qty: 0 RF: 0 Stand-Alone Forms: [facility]/Other Patient Handouts: Prediabetes, Diabetes Meal Planning Discharge Orders: Discharge Order (Routine); Ordered 10/09/18 Ordered By: Myrna Brown Admission Data Admit Date/Time: 10/08/18 11:38 Attending Provider: Myrna Brown Admit Provider: Kevin Huffman Primary Care Provider: Jonh Hendrix Other Providers: Jace Elizalde Service: Telemetry Medical Other Interventions: Discharge Summary Assessment (RN) Last Done: 10/09/18 13:26 Pending Studies at Discharge: Yes (ECHOCARDIOGRAM) DC Date/Time DO NOT enter until pt leaves facility: 10/09/18 13:40
--- NOTE | 2018-10-25 10:27 | Coding Query ---
A supporting diagnosis is required for the test/procedure performed on this patient in order for us to be reimbursed by the patient's insurance. Please provide a supporting diagnosis for the following test/procedure listed below next to the test name along with your signature. *If there is no additional diagnosis for this patient that would support the following test/procedure please document that below next to the test/procedure. Test(s)/Procedure(s) that require a supporting diagnosis: Mr Angiography Head w/o Dye DIAGNOSIS: right arm paresthesia Mr Angiography Neck w/&w/ Dye DIAGNOSIS: right arm paresthesia Provider Signature: Kevin Huffman MD Date: ____10/25/18___ Thank you Emma Sampson [facility] Information Management Once completed, please kindly fax back to [phone] For questions please call [phone] [id number]
== END 2018-10-09 13:40 | disposition home or self-care (01) ==
LOC: ED 09:26 → 2N 09:26 → SUATTDRO 11:38 → 2N 15:15
DX: R20.2 Paresthesia of skin; E78.5 Hyperlipidemia, unspecified; E11.9 Type 2 diabetes mellitus without complications; Z79.82 Long term (current) use of aspirin